=== PATIENT | male | born 1950 | race Caucasian/White ===

== ENCOUNTER 2016-09-05 09:04 | Inpatient (IN) | payer OTHER ==
[~2016-09-05] VITALS: Ht 172.7 cm; Wt 81.8 kg
[~2016-09-05 09:04] MED LIST: ABL/15 PO; ALBU0.08 INH; HYDCR1 EXT; INSUINJ12 SC; IPRA1AER2 INH; LPR25 PO; MELA1TAB22 PO; NVLGI SC; NYSS5 PO; OXYC7.5T65 PO; PRED10TA PO; SERT-234 PO; SIMV20TA2 PO; SPRIN INH; TIZA4CAP PO; ZTHM250 PO
--- NOTE | 2016-09-05 09:36 | DIAGNOSTIC IMAGING REPORT ---
CHEST ONE VIEW PORTABLE CLINICAL HISTORY: weakness COMPARISON STUDY: 03/25/2016 FINDINGS: There is right-sided volume loss. There is stable linear scar/atelectatic change the right lung base. There is no focal pulmonary consolidation. There are no pleural effusions. There is no overt failure.[There is a thoracolumbar scoliosis. IMPRESSION: Mild elevation of the right hemidiaphragm with right-sided volume loss. No evidence of acute parenchymal consolidation. No evidence of overt failure. Electronically signed by: Tonio Colon M.D. 09/05/2016 9:34 AM Dictated Date/Time: 09/05/2016 9:32 AM
[2016-09-05 10:08] LABS: BASO % 0.3 %; BASO ABS # 0.02 K/uL (0-0.2); COMPLETE YES; EOS % 2.8 %; HEMATOCRIT 44.2 % (42-52); IG% 0.3 %; LYMPH % 21.9 %; LYMPH ABS # 1.67 K/uL (1.2-3.4); MEAN CELL VOLUME 104.7 fL (80-100); MEAN CORPUSCULAR HEMOGLOBIN 31.8 pg (25-34); MEAN CORPUSCULAR HGB CONC 30.3 g/dl (32-36); MEAN PLATELET VOLUME 10.8 fL (7.4-10.4); MONO % 7.1 %; NEUT % 67.6 %; PLATELET COUNT 111 K/uL (130-400); RED BLOOD COUNT 4.22 M/uL (4.7-6.1); WHITE BLOOD COUNT 7.62 K/uL (4.8-10.8)
[2016-09-05 10:16] LABS: ALT/SGPT 43 U/L (12-78); BLOOD UREA NITROGEN 19 mg/dl (7-18); CALCIUM 9.1 mg/dl (8.5-10.1); CARBON DIOXIDE 36 mmol/L (21-32); CHLORIDE 100 mmol/L (98-107); CREATININE 0.42 mg/dl (0.60-1.40); GLUCOSE 118 mg/dl (70-99); SODIUM 142 mmol/L (136-145)
[2016-09-05 10:21] LABS: ALB/GLOB RATIO 1.1 (0.9-2); ALKALINE PHOSPHATASE 74 U/L (45-117); AST/SGOT 30 U/L (15-37); CKMB/CK RATIO 1.9 (0-3.0)
--- NOTE | 2016-09-05 10:44 | EMERGENCY ROOM VISIT NOTE ---
History Report prepared by Laura: Marcus Pierce Under the Supervision of: Dr. Kennedy Gates M.D. First contact with patient: 10:08 Chief Complaint: WEAKNESS Stated Complaint: WEAKNESS Nursing Triage Summary: Patint presents to ER via EMS c/o weakness. Patient states "I just don't feel right". EMS states they were called at 0700 and patients family stated patient seemed weaker. Weakness noted starting around 0600. Patient has hx of polio. Bilateral feet contracted with foot drop noted. EMS arrived around 0745. Patient denies SOB, CP, cough, N/V/D. History of Present Illness The patient is a 66 year old male who presents to the Emergency Room with complaints of persistent confusion that worsened early this morning. Per family , the patient is has been more confused than he typically is at baseline for the past few days. Per daughter, the patient has been having episodes of blank staring where he does not respond verbally and seemed unable to talk to family members. She also notes a few episodes of involuntary twitching and more urinary frequency. The patient has a history of polio but has not had symptoms this severely in the past. Per patient's , his home oxygen recently had to be increased one liter because he was having difficulty breathing. The patient is on Percocet, Abilify, and Zoloft medications; the family denies any recent changes in medications. Source of History: patient, family Onset: early this morning Position: other (global) Timing: worsening, other (persistent) Associated Symptoms: + SOB (increased home oxygen because difficulty breathing), + urinary symptoms (urinary frequency) Note: Other associated symptoms: staring off, not responding, unable to talk Denies: recent medication changes Review of Systems All systems have been listed, reviewed, and are negative other than those previously mentioned. Please see Additional Medical History Sheet. Past Medical & Surgical Medical Problems: (1) Depression (2) Diabetes mellitus, type II (3) Dyslipidemia (4) History of poliomyelitis (5) Kidney stones (6) Rheumatoid arthritis (7) Sepsis Surgical Problems: (1) H/O knee surgery (2) H/O shoulder surgery (3) History of hip surgery (4) S/P surgical manipulation of ankle joint Family History FH: HTN (hypertension) FH: cancer FH: diabetes mellitus FH: kidney disease FHx: heart disease Social History Smoking Status: Former Smoker Alcohol Use: occasionally Marital Status: Housing Status: lives with family Occupation Status: disabled Current/Historical Medications Scheduled Aripiprazole (Abilify), 15 MG PO DAILY Aspirin (Aspirin EC Low Dose), 81 MG PO DAILY Insulin Detmir (Levemir), 24 UNIT SC QAM Insulin Detmir (Levemir), 20 UNIT SC HS Oxygen (Oxygen), 2.5-3 LITERS NA CONTINOUS Sertraline (Zoloft), 200 MG PO DAILY Simvastatin (Zocor), 20 MG PO QPM Scheduled PRN Albuterol (Ventolin Hfa), 2 PUFFS INH Q4H PRN for SOB/Wheezing Albuterol Sulf (Proventil 0.083% 2.5MG/3ML), 2.5 MG INH Q4 PRN for SOB/Wheezing Betamethasone Dip (Betamethasone Dipropionat), 1 APPLN EXT BID PRN for rash Ipratropium-Albuterol (Combivent Respimat), 1 PUFFS INH QID PRN for SOB/Wheezing Melatonin-Pyridoxine (Melatonin), 1 TAB PO HS PRN for Sleep Oxycodone/Acetaminophen 10MG/325MG (Percocet 10MG/325MG), 1 TAB PO Q6 PRN for Pain Tizanidine Hcl (Zanaflex), 1 CAP PO TID PRN for Muscle Spasms Miscellaneous Medications Insulin Aspart (Novolog), 0 SC Allergies Coded Allergies: No Known Allergies (Unverified , 03/25/16) Physical Exam Vital Signs Date Time Temp Pulse Resp B/P Pulse Ox O2 Delivery O2 Flow Rate FiO2 09/05/16 15:01 36.8 62 16 96/68 93 Nasal Cannula 2.5 09/05/16 14:30 100 16 96/68 93 Nasal Cannula 2.5 09/05/16 13:42 96 09/05/16 12:30 82 17 106/73 93 Room Air 09/05/16 10:41 87 17 108/78 95 Nasal Cannula 2.5 09/05/16 09:22 97 Nasal Cannula 2.5 09/05/16 09:13 90 09/05/16 09:08 36.8 100 16 149/84 97 Nasal Cannula 2.5 Physical Exam GENERAL: Patient awake, alert, oriented to person and place. Patient follows commands. Patient does not appear toxic. SKIN: No erythema, pallor, cyanosis or rash HEENT: Normal head, atraumatic, Pupils one mm bilaterally, left eye more reactive than right. Ears normal. Oral cavity and posterior pharynx appear normal. Neck: Without adenopathy, no neck vein distention. LUNGS: Clear to auscultation. No wheezes, no rales, no rhonchi. HEART: No murmurs. No gallops. No rubs ABDOMEN: No masses, no rebound, no hepatomegaly or splenomegaly. No CVA tenderness EXTREMITIES: No signs of trauma. No pedal or pretibial edema. No calf or thigh tenderness. NEUROLOGIC: Cranial nerves II-XII within normal limits. Motor and reflex exams limited due to polio history Medical Decision & Procedures ER Provider Diagnostic Interpretation: X-ray results as stated below per my interpretation and radiologist interpretation. Other radiology results as stated below per my review and radiologist interpretation: CHEST ONE VIEW PORTABLE CLINICAL HISTORY: weakness COMPARISON STUDY: 03/25/2016 FINDINGS: There is right-sided volume loss. There is stable linear scar/atelectatic change the right lung base. There is no focal pulmonary consolidation. There are no pleural effusions. There is no overt failure.[There is a thoracolumbar scoliosis. IMPRESSION: Mild elevation of the right hemidiaphragm with right-sided volume loss. No evidence of acute parenchymal consolidation. No evidence of overt failure. Electronically signed by: Tonio Colon M.D. 09/05/2016 9:34 AM Dictated Date/Time: 09/05/2016 9:[address] HEAD WITHOUT CONTRAST (CT) CLINICAL HISTORY: Change in mental status. Confusion/delirium. COMPARISON STUDY: 11/20/2015 TECHNIQUE: Axial CT of the brain is performed from the vertex to the skull base. IV contrast was not administered for this examination. CT DOSE: 638.56 mGycm FINDINGS: No intra or extra-axial mass lesions are visualized. There is no CT evidence of acute cortical infarction. There is no evidence of midline shift. There is no acute hemorrhage. No calvarial fractures are visualized. There are minimal white matter hypodensities likely on a small vessel basis. There is no evidence of pathologic ventricular dilatation. There is partial opacification of the right frontal sinus. IMPRESSION: 1. Partial opacification the right frontal sinus 2. No acute intracranial findings Electronically signed by: Tonio Colon M.D. 09/05/2016 11:04 AM Dictated Date/Time: 09/05/2016 11:02 AM Laboratory Results 09/05/16 09:10 Red Blood Count 4.22, Mean Corpuscular Volume 104.7, Mean Corpuscular Hemoglobin 31.8, Mean Corpuscular Hemoglobin Concent 30.3, Mean Platelet Volume 10.8, Neutrophils (%) (Auto) 67.6, Lymphocytes (%) (Auto) 21.9, Monocytes (%) ( Auto) 7.1, Eosinophils (%) (Auto) 2.8, Basophils (%) (Auto) 0.3, Neutrophils # ( Auto) 5.16, Lymphocytes # (Auto) 1.67, Monocytes # (Auto) 0.54, Eosinophils # ( Auto) 0.21, Basophils # (Auto) 0.02 09/05/16 09:10 Test 09/05/16 09:10 09/05/16 11:30 White Blood Count 7.62 K/uL (4.8-10.8) Red Blood Count 4.22 M/uL (4.7-6.1) Hemoglobin 13.4 g/dL (14.0-18.0) Hematocrit 44.2 % (42-52) Mean Corpuscular Volume 104.7 fL (80-100) Mean Corpuscular Hemoglobin 31.8 pg (25-34) Mean Corpuscular Hemoglobin Concent 30.3 g/dl (32-36) Platelet Count 111 K/uL (130-400) Mean Platelet Volume 10.8 fL (7.4-10.4) Neutrophils (%) (Auto) 67.6 % Lymphocytes (%) (Auto) 21.9 % Monocytes (%) (Auto) 7.1 % Eosinophils (%) (Auto) 2.8 % Basophils (%) (Auto) 0.3 % Neutrophils # (Auto) 5.16 K/uL (1.4-6.5) Lymphocytes # (Auto) 1.67 K/uL (1.2-3.4) Monocytes # (Auto) 0.54 K/uL (0.11-0.59) Eosinophils # (Auto) 0.21 K/uL (0-0.5) Basophils # (Auto) 0.02 K/uL (0-0.2) RDW Standard Deviation 52.7 fL (36.4-46.3) RDW Coefficient of Variation 13.7 % (11.5-14.5) Immature Granulocyte % (Auto) 0.3 % Immature Granulocyte # (Auto) 0.02 K/uL (0.00-0.02) Anion Gap 6.0 mmol/L (3-11) Est Creatinine Clear Calc Drug Dose 171.9 ml/min Estimated GFR () 142.6 Estimated GFR (Non- 123.0 BUN/Creatinine Ratio 44.0 (10-20) Calcium Level 9.1 mg/dl (8.5-10.1) Total Bilirubin 0.2 mg/dl (0.2-1) Aspartate Amino Transf (AST/SGOT) 30 U/L (15-37) Alanine Aminotransferase (ALT/SGPT) 43 U/L (12-78) Alkaline Phosphatase 74 U/L (45-117) Total Creatine Kinase 31 U/L (39-308) Creatine Kinase MB 0.6 ng/ml (0.5-3.6) Creatine Kinase MB Ratio 1.9 (0-3.0) Troponin I < 0.015 ng/ml (0-0.045) Total Protein 7.0 gm/dl (6.4-8.2) Albumin 3.6 gm/dl (3.4-5.0) Globulin 3.4 gm/dl (2.5-4.0) Albumin/Globulin Ratio 1.1 (0.9-2) Urine Color DK YELLOW Urine Appearance CLEAR (CLEAR) Urine pH 5.0 (4.5-7.5) Urine Specific [place] 1.025 (1.000-1.030) Urine Protein NEG (NEG) Urine Glucose (UA) NEG (NEG) Urine Ketones NEG (NEG) Urine Occult Blood TRACE (NEG) Urine Nitrite NEG (NEG) Urine Bilirubin NEG (NEG) Urine Urobilinogen NEG (NEG) Urine Leukocyte Esterase TRACE (NEG) Urine WBC (Auto) 1-5 /hpf (0-5) Urine RBC (Auto) 0-4 /hpf (0-4) Urine Hyaline Casts (Auto) 5-10 /lpf (0-5) Urine Epithelial Cells (Auto) 10-20 /lpf (0-5) Urine Bacteria (Auto) NEG (NEG) Laboratory results as stated above per my review. ECG Indication: other Rate (beats per minute): 90 Rhythm: normal sinus Findings: no acute ischemic change, no ectopy ED Course 1020: Past medical records reviewed. The patient was evaluated in room B5. A complete history and physical examination was performed. 1300: At this time, I reevaluated the patient and talked with the patient's family. Further history was obtained and it was noted that the patient did obtain an extra pain pill, Percocet, earlier this morning. However, the family does not believe this is the problem. 1345: At this time, I discussed the findings with the family. They were concerned about the patient's altered status and expressed that they felt very apprehensive about taking the patient home today. 1406: I discussed the patient's case with Hue Smith PA-C - Lai Hamilton and she agreed to accept the patient for further evaluation. Medical Decision Differential diagnoses include delirium, dementia, TIA, stroke, intracranial bleed, UTI, pneumonia, medication reaction, or sepsis. The patient is here with altered mental status. Family believes he was hallucinating this morning. This is unusual for the patient. There was some question whether he got an extra dose of Percocet but the family does not believe that is the cause. Multiple labs, EKG and imaging were obtained. Please see above. The patient has no evidence of an acute stroke on CT. Labs are close to normal levels. The patient was reevaluated multiple times. Family believes that he remains altered from his normal state. In light of that I will have the patient stay in the hospital. I discussed care with the patient, multiple family members and with the hospitalist. Consults Time Called: 1400 Consulting Physician: Hue Smith PA-C - Lai Hamilton Returned Call: 140 At this time, I discussed the patient's case with Hue Smith PA-C and she agreed to accept the patient for further evaluation. Impression Primary Impression: Altered mental status Scribe Attestation The scribe's documentation has been prepared under my direction and personally reviewed by me in its entirety. I confirm that the note above accurately reflects all work, treatment, procedures, and medical decision making performed by me. Departure Information Dispostion Being Evaluated By Hospitalist Asad Randhawa M.D. (PCP)
[2016-09-05] MEDS ORDERED: SERT-234 PO (10:50)
[2016-09-05] MEDS ORDERED: OXYC-106 PO (10:50)
[2016-09-05] MEDS ORDERED: OXGN (10:50)
--- NOTE | 2016-09-05 11:05 | DIAGNOSTIC IMAGING REPORT ---
CT HEAD WITHOUT CONTRAST (CT) CLINICAL HISTORY: Change in mental status. Confusion/delirium. COMPARISON STUDY: 11/20/2015 TECHNIQUE: Axial CT of the brain is performed from the vertex to the skull base. IV contrast was not administered for this examination. CT DOSE: 638.56 mGycm FINDINGS: No intra or extra-axial mass lesions are visualized. There is no CT evidence of acute cortical infarction. There is no evidence of midline shift. There is no acute hemorrhage. No calvarial fractures are visualized. There are minimal white matter hypodensities likely on a small vessel basis. There is no evidence of pathologic ventricular dilatation. There is partial opacification of the right frontal sinus. IMPRESSION: 1. Partial opacification the right frontal sinus 2. No acute intracranial findings Electronically signed by: Tonio Colon M.D. 09/05/2016 11:04 AM Dictated Date/Time: 09/05/2016 11:02 AM
[2016-09-05 11:53] LABS: URINE APPEARANCE CLEAR (CLEAR); URINE COLOR DK YELLOW; URINE NITRITE NEG (NEG); URINE SPECIFIC GRAVITY 1.025 (1.000-1.030); UROBILINOGEN NEG (NEG); ZZUR CULT IF INDIC CLEAN CATCH NO
[2016-09-05 12:00] LABS: MANUAL MICROSCOPIC REQUIRED? NO; REVIEW REQ? NO
[2016-09-05 12:02] LABS: URINE BILIRUBIN NEG (NEG)
[2016-09-05 15:01] VITALS: BP 96/68; PULSE 62; TEMP 36.8; O2SAT 93; Ht 172.7 cm; Wt 81.8 kg
[2016-09-05] MEDS ORDERED: TIZA4CAP PO (15:05)
[2016-09-05] MEDS ORDERED: ALBINS/ INH (15:05)
[2016-09-05] MEDS ORDERED: IPRA1AER2 INH (15:05)
[2016-09-05] MEDS ORDERED: DPRSO15 EXT (15:05)
[2016-09-05] MEDS ORDERED: PRVHFAIN INH (15:05)
[2016-09-05] MEDS ORDERED: MELA1TAB3 PO (15:11)
[2016-09-05] MEDS ORDERED: ASPEC81 PO (15:11)
[2016-09-05] MEDS ORDERED: GLUCAGON FOR INJ 1 MG VIAL SQ PRN (15:15)
[2016-09-05] MEDS ORDERED: GLUCOSE 10 TABS/TUBE PO PRN (15:15)
[2016-09-05] MEDS ORDERED: DEXTROSE 50% 50 ML SYR IV PRN (15:15)
[2016-09-05] MEDS ORDERED: IPRATROPIUM BROMIDE/ALBUTEROL respimat INH INH PRN (15:15)
[2016-09-05] MEDS ORDERED: ALBUTEROL HFA 8 GM INHALER INH PRN (15:15)
[2016-09-05] MEDS ORDERED: GLUCOSE 40% GEL 15 GM TUBE PO PRN (15:15)
[2016-09-05] MEDS ORDERED: ALBUTEROL 0.083% NEBU SOLN 3 ML VIAL INH PRN (15:15)
[2016-09-05] MEDS ORDERED: ONDANSETRON INJ 2 MG/ML 2 ML VIAL IV PRN (15:30)
[2016-09-05] MEDS ORDERED: ACETAMINOPHEN 325 MG TAB PO PRN (15:30)
--- NOTE | 2016-09-05 15:51 | History and Physical ---
History & Physical Date & Time of Service: Sep 05, 2016 at 15:14 Chief Complaint: Weakness Primary Care Physician: Asad Painter M.D. History of Present Illness Source: patient, family ( and daughter at bedside), clinic records This is a 66 year old male with PMH of COPD, chronic respiratory failure on supplemental O2, DM type 2, dyslipidemia, depression, Polio, chronically bedbound, who presents to the ED by ambulance for altered mental status. Patient reports "I was talking goofy". Per the family, around 6 am, he started having intermittent episodes of staring with eyes open, was unresponsive, and was twitching diffusely. Daughter sates these episodes were intermittent over 1 hour, lasting a few minutes at a time. In between episodes he was confused and would say things that did not make sense. There was no tongue biting or incontinence. Daughter states he was disoriented to the year earlier today, which is unusual for him. On my questioning he states it is September 2015- which is improved from earlier today. He is oriented to person and place. He is chronically weak in arms and R > L leg and bedbound due to polio but there is no acute change in weakness. Denies ROJAS, vision change, slurred speech, facial droop, swallowing difficulty, numbness. His blood sugar was in 100s at home this morning and in ER. Mood has been stable. No recent change in medications. He did have 1 dose of Percocet this morning. Pt had a dry cough 2-3 weeks ago which has been improving. Pt has arthritis but recently was c/o diffuse body pain worse than usual. No fever, chills, rhinorrhea, sore throat, CP, worsening of chronic SOB, N/V/D, abdominal pain, change in urination. No history of seizure or CVA. No sick contacts. Past Medical/Surgical History Medical Problems: (1) Depression Status: Chronic (2) Diabetes mellitus, type II Status: Chronic (3) Dyslipidemia Status: Chronic (4) History of poliomyelitis Status: Resolved (5) Kidney stones Status: Resolved (6) Rheumatoid arthritis Status: Chronic Surgical Problems: (1) H/O knee surgery Status: Chronic (2) H/O shoulder surgery Status: Chronic (3) History of hip surgery Status: Chronic (4) S/P surgical manipulation of ankle joint Status: Chronic Family History FH: HTN (hypertension) FH: cancer FH: diabetes mellitus MOTHER BROTHER SISTER FH: kidney disease FHx: heart disease Social History Smoking Status: Former Smoker (quit in February 2016) Alcohol Use: none Drug Use: none Marital Status: Housing status: lives with family Occupational Status: disabled Immunizations History of Influenza Vaccine: Yes Influenza Vaccine Date: May 09, 2015 History of Tetanus Vaccine?: Yes Tetanus Immunization Date: Sep 25, 2011 History of Pneumococcal: Yes Pneumococcal Date: Oct 05, 2011 Allergies Coded Allergies: No Known Allergies (Unverified , 03/25/16) Home Medications Scheduled Aripiprazole (Abilify), 15 MG PO DAILY Aspirin (Aspirin EC Low Dose), 81 MG PO DAILY Insulin Detmir (Levemir), 24 UNIT SC QAM Insulin Detmir (Levemir), 20 UNIT SC HS Oxygen (Oxygen), 2.5-3 LITERS NA CONTINOUS Sertraline (Zoloft), 200 MG PO DAILY Simvastatin (Zocor), 20 MG PO QPM Scheduled PRN Albuterol (Ventolin Hfa), 2 PUFFS INH Q4H PRN for SOB/Wheezing Albuterol Sulf (Proventil 0.083% 2.5MG/3ML), 2.5 MG INH Q4 PRN for SOB/Wheezing Betamethasone Dip (Betamethasone Dipropionat), 1 APPLN EXT BID PRN for rash Ipratropium-Albuterol (Combivent Respimat), 1 PUFFS INH QID PRN for SOB/Wheezing Melatonin-Pyridoxine (Melatonin), 1 TAB PO HS PRN for Sleep Oxycodone/Acetaminophen 10MG/325MG (Percocet 10MG/325MG), 1 TAB PO Q6 PRN for Pain Tizanidine Hcl (Zanaflex), 1 CAP PO TID PRN for Muscle Spasms Miscellaneous Medications Insulin Aspart (Novolog), 0 SC Review of Systems Constitutional: No chills, No fever Eyes: No worsening of vision ENT: No nasal symptoms, No sore throat, No trouble swallowing Respiratory: + cough, + shortness of breath (no change from baseline), No sputum Cardiovascular: No chest pain Abdomen: No diarrhea, No nausea, No pain, No vomiting Musculoskeletal: + joint pain Genitourinary - Male: No dysuria, No urinary frequency (no increase from baseline) Neurologic: + weakness (no change from baseline), No numbness/tingling Psychiatric: No anxiety, No depression symptoms Hematologic / Lymphatic: + abnormal bleeding/bruising (bruises easily. no abnormal bleeding) Integumentary: + rash (psoriasis plaques on trunk) Physical Exam Vital Signs Date Time Temp Pulse Resp B/P Pulse Ox O2 Delivery O2 Flow Rate FiO2 09/05/16 14:30 100 16 96/68 93 Nasal Cannula 2.5 09/05/16 13:42 96 09/05/16 12:30 82 17 106/73 93 Room Air 09/05/16 10:41 87 17 108/78 95 Nasal Cannula 2.5 09/05/16 09:22 97 Nasal Cannula 2.5 09/05/16 09:13 90 09/05/16 09:08 36.8 100 16 149/84 97 Nasal Cannula 2.5 General Appearance: WD/WN, no apparent distress, + pertinent finding (alert 66 year old male, no distress, family at bedside) Head: normocephalic, atraumatic Eyes: normal inspection, PERRL, EOMI ENT: hearing grossly normal, pharynx normal Neck: supple Respiratory/Chest: lungs clear, normal breath sounds, no respiratory distress Cardiovascular: regular rate, rhythm, no murmur Abdomen/GI: normal bowel sounds, non tender, soft Extremities/Musculoskelatal: no calf tenderness, no pedal edema, + pertinent finding (has deformities of right hand and bilateral ankles/ feet. 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 mildly disoriented to date- states September 2015. staffing rn strength equal 4/5. unable to lift bilateral arms off the bed- baseline per family. able to lift L leg strength 3/5. unable to lift R leg strength 1/5- baseline. sensation to light touch intact all extremities. ) Skin: normal color, warm/dry, + pertinent finding (psoriatic plaques on abdomen ) Diagnostics Laboratory Results Results Past 24 Hours Test 09/05/16 09:10 09/05/16 11:30 Range/Units White Blood Count 7.62 4.8-10.8 K/uL Red Blood Count 4.22 4.7-6.1 M/uL Hemoglobin 13.4 14.0-18.0 g/dL Hematocrit 44.2 42-52 % Mean Corpuscular Volume 104.7 80-100 fL Mean Corpuscular Hemoglobin 31.8 25-34 pg Mean Corpuscular Hemoglobin Concent 30.3 32-36 g/dl Platelet Count 111 130-400 K/uL Mean Platelet Volume 10.8 7.4-10.4 fL Neutrophils (%) (Auto) 67.6 % Lymphocytes (%) (Auto) 21.9 % Monocytes (%) (Auto) 7.1 % Eosinophils (%) (Auto) 2.8 % Basophils (%) (Auto) 0.3 % Neutrophils # (Auto) 5.16 1.4-6.5 K/uL Lymphocytes # (Auto) 1.67 1.2-3.4 K/uL Monocytes # (Auto) 0.54 0.11-0.59 K/uL Eosinophils # (Auto) 0.21 0-0.5 K/uL Basophils # (Auto) 0.02 0-0.2 K/uL RDW Standard Deviation 52.7 36.4-46.3 fL RDW Coefficient of Variation 13.7 11.5-14.5 % Immature Granulocyte % (Auto) 0.3 % Immature Granulocyte # (Auto) 0.02 0.00-0.02 K/uL Sodium Level 142 136-145 mmol/L Potassium Level 5.0 3.5-5.1 mmol/L Chloride Level 100 98-107 mmol/L Carbon Dioxide Level 36 21-32 mmol/L Anion Gap 6.0 3-11 mmol/L Blood Urea Nitrogen 19 7-18 mg/dl Creatinine 0.42 0.60-1.40 mg/dl Est Creatinine Clear Calc Drug Dose 171.9 ml/min Estimated GFR () 142.6 Estimated GFR (Non- 123.0 BUN/Creatinine Ratio 44.0 10-20 Random Glucose 118 70-99 mg/dl Calcium Level 9.1 8.5-10.1 mg/dl Total Bilirubin 0.2 0.2-1 mg/dl Aspartate Amino Transf (AST/SGOT) 30 15-37 U/L Alanine Aminotransferase (ALT/SGPT) 43 12-78 U/L Alkaline Phosphatase 74 45-117 U/L Total Creatine Kinase 31 39-308 U/L Creatine Kinase MB 0.6 0.5-3.6 ng/ml Creatine Kinase MB Ratio 1.9 0-3.0 Troponin I < 0.015 0-0.045 ng/ml Total Protein 7.0 6.4-8.2 gm/dl Albumin 3.6 3.4-5.0 gm/dl Globulin 3.4 2.5-4.0 gm/dl Albumin/Globulin Ratio 1.1 0.9-2 Urine Color DK YELLOW Urine Appearance CLEAR CLEAR Urine pH 5.0 4.5-7.5 Urine Specific [place] 1.025 1.000-1.030 Urine Protein NEG NEG Urine Glucose (UA) NEG NEG Urine Ketones NEG NEG Urine Occult Blood TRACE NEG Urine Nitrite NEG NEG Urine Bilirubin NEG NEG Urine Urobilinogen NEG NEG Urine Leukocyte Esterase TRACE NEG Urine WBC (Auto) 1-5 0-5 /hpf Urine RBC (Auto) 0-4 0-4 /hpf Urine Hyaline Casts (Auto) 5-10 0-5 /lpf Urine Epithelial Cells (Auto) 10-20 0-5 /lpf Urine Bacteria (Auto) NEG NEG Diagnostic Radiology CHEST ONE VIEW PORTABLE CLINICAL HISTORY: weakness COMPARISON STUDY: 03/25/2016 FINDINGS: There is right-sided volume loss. There is stable linear scar/atelectatic change the right lung base. There is no focal pulmonary consolidation. There are no pleural effusions. There is no overt failure.[There is a thoracolumbar scoliosis. IMPRESSION: Mild elevation of the right hemidiaphragm with right-sided volume loss. No evidence of acute parenchymal consolidation. No evidence of overt failure. CT HEAD WITHOUT CONTRAST (CT) CLINICAL HISTORY: Change in mental status. Confusion/delirium. COMPARISON STUDY: 11/20/2015 TECHNIQUE: Axial CT of the brain is performed from the vertex to the skull base. IV contrast was not administered for this examination. CT DOSE: 638.56 mGycm FINDINGS: No intra or extra-axial mass lesions are visualized. There is no CT evidence of acute cortical infarction. There is no evidence of midline shift. There is no acute hemorrhage. No calvarial fractures are visualized. There are minimal white matter hypodensities likely on a small vessel basis. There is no evidence of pathologic ventricular dilatation. There is partial opacification of the right frontal sinus. IMPRESSION: 1. Partial opacification the right frontal sinus 2. No acute intracranial findings EKG NSR, 90 bpm, no ST or T wave abnormalities Impression Assessment and Plan ALTERED MENTAL STATUS- resolving Unclear etiology- no clear evidence for infection- will check influenza swab, no consolidation on CXR, UA does not appear infected No focal deficits; CT head- no acute intracranial abnormality Check urine tox screen Hold Percocet and Zanaflex Question of seizure like activity Consult neurology COPD/ CHRONIC RESPIRATORY FAILURE Not in acute exacerbation Continue home nebs/ inhalers On chronic supplemental O2 2.5-3 liters DEPRESSION Mood is stable Continue Abilify and Zoloft DM TYPE 2 Continue Levemir Insulin sliding scale coverage A1c in AM RHEUMATOID ARTHRITIS Hold Percocet due to AMS HISTORY OF POLIO Bedbound due to chronic weakness DVT PROPHYLAXIS Lovenox SQ DISPOSITION Observation to med/surg Lives at home with Follows with Dr. Painter for primary care. Patient seen in collaboration with Dr. Grubbs. Please see his addendum. ATTENDING NOTE Patient seen & examined at bedside. Reviewed the above History/Physical and confirmed all the findings in person. Patient is awake and tries to answer simple questions which as per the family members is different than his baseline. CT Head is negative for any acute finding other than Frontal sinus opacification. Chest X-Ray is negative for any Pneumonia. Patient is being admitted to medical floor. Neurology consult requested. Hold any sedative medication. DVT Prophylaxis with Sq Lovenox. Sarkis Grubbs MD Level of Care Med/Surg VTE Prophylaxis Given or contraindicated: Enoxaparin (Lovenox)SQ
[2016-09-05] MEDS: INSULIN ASPART 100 UNITS/ML 3 ML PEN SC SCH ×2 (16:00→20:47)
[2016-09-05 16:04] LABS: PARTIAL THROMBOPLASTIN RATIO 1.1; PROTHROMBIN TIME (PATIENT) 10.8 SECONDS (9.0-12.0)
[2016-09-05] MEDS ORDERED: INFLUENZA VIRUS QUAD VACCINE 0.5 ML SYR IM. ONE (16:30)
[2016-09-05] MEDS ORDERED: IV FLUIDS COMPLETED PRN (16:30)
[2016-09-05] MEDS ORDERED: INFLUENZA ADMINISTRATION CHARGE ONE (16:30)
[2016-09-05 19:00] VITALS: BP 137/78; PULSE 97; TEMP 37.4; O2SAT 95
[2016-09-05] MEDS: SIMVASTATIN 20 MG TAB PO SCH (20:40)
[2016-09-05] MEDS: ENOXAPARIN 40 MG/0.4 ML SYR SQ SCH (20:42)
[2016-09-05] MEDS: INSULIN DETEMIR FLEXPEN/FLEX TOUCH 100 UNITS/ML 3ML SC SCH (20:44)
[2016-09-05 23:18] LABS: BENZODIAZEPINE, URINE NEG (NEG); COCAINE,URINE NEG (NEG); PHENCYCLIDINE, URINE NEG (NEG)
[2016-09-06 00:14] VITALS: BP 124/79; PULSE 91; TEMP 37.1; O2SAT 95
[2016-09-06 00:25] LABS: INFLUENZA A PCR Neg for Influ A (NEG); INFLUENZA B PCR Neg for Influ B (NEG)
[2016-09-06 08:00] VITALS: O2SAT 95
[2016-09-06 08:19] VITALS: BP 125/73; PULSE 79; TEMP 36.6; O2SAT 97
[2016-09-06 08:20] LABS: MEAN CELL VOLUME 103.6 fL (80-100); MEAN CORPUSCULAR HEMOGLOBIN 32.4 pg (25-34); MEAN CORPUSCULAR HGB CONC 31.3 g/dl (32-36); RED BLOOD COUNT 3.86 M/uL (4.7-6.1); WHITE BLOOD COUNT 5.63 K/uL (4.8-10.8)
[2016-09-06 08:42] LABS: MEAN PLATELET VOLUME 10.4 fL (7.4-10.4); PLATELET COUNT 94 K/uL (130-400); PLT ESTIMATE DECREASED
[2016-09-06 08:47] LABS: BLOOD UREA NITROGEN 19 mg/dl (7-18); BUN/CREATININE RATIO 65.5 (10-20); CALCIUM 8.8 mg/dl (8.5-10.1); CARBON DIOXIDE 37 mmol/L (21-32); CHLORIDE 100 mmol/L (98-107); CREATININE 0.29 mg/dl (0.60-1.40); ESTIMATED AVERAGE GLUCOSE 120 mg/dl; GLUCOSE 100 mg/dl (70-99); HA1C FLAG Normal (Normal); POTASSIUM 4.4 mmol/L (3.5-5.1); SODIUM 144 mmol/L (136-145)
[2016-09-06] MEDS: ARIPIprazole TAB 15 MG TAB PO SCH (09:17)
[2016-09-06] MEDS: ASPIRIN 81 MG ECTAB PO SCH (09:17)
[2016-09-06] MEDS: SERTRALINE HCL 100 MG TAB PO SCH (09:17)
[2016-09-06] MEDS: INSULIN DETEMIR FLEXPEN/FLEX TOUCH 100 UNITS/ML 3ML SC SCH ×2 (09:21→20:56)
[2016-09-06] MEDS: INSULIN ASPART 100 UNITS/ML 3 ML PEN SC SCH ×4 (09:21→20:55)
--- NOTE | 2016-09-06 12:02 | Progress Note ---
Medicine Progress Note Date & Time of Visit: Sep 06, 2016 at 10:30. (Hue Smith PA-C) Subjective Patient seen and examined. Per his grandson at the bedside, who stayed with him last night, overnight he was hallucinating that trucks were on the ceiling. Daughter states this also happened in ER yesterday- was hallucinating that animals were present. Grandson/ daughter state he is back to baseline currently. Patient is complaining of his chronic diffuse pain. His home Percocet was held due to AMS. Daughter states he refused Tylenol because he knows it will not work. Denies dizziness, ROJAS, numbness, change in chronic weakness, chest pain, cough, SOB, abdominal pain, N/V/D. (Hue Smith PA-C) Objective Last 8 Hrs Date Time Temp Pulse Resp B/P Pulse Ox O2 Delivery O2 Flow Rate FiO2 09/06/16 08:19 36.6 79 20 125/73 97 Nasal Cannula 3.0 Physical Exam: General-alert 66 year old male, lying in bed, no distress, family at bedside Eyes-anicteric, EOMI, FAWN ENT-hearing grossly intact Neck-trachea midline Lungs-CTA bilaterally, no wheezes, crackles, rhonchi, no resp distress, no accessory muscle use Heart-RRR, no murmur Abdomen-soft, nontender, BS normal Extremities- chronic deformities of right hand and bilateral ankles/ feet, Neuro-alert and oriented to person + place, mildly off on the year (states 2016) , speech is clear, facial movements symmetric, +chronic weakness of bilateral arms and legs Laboratory Results: Last 24 Hours Test 09/05/16 11:30 09/05/16 17:09 09/05/16 20:37 09/05/16 22:30 Urine Color DK YELLOW Urine Appearance CLEAR Urine pH 5.0 Urine Specific [place] 1.025 Urine Protein NEG Urine Glucose (UA) NEG Urine Ketones NEG Urine Occult Blood TRACE Urine Nitrite NEG Urine Bilirubin NEG Urine Urobilinogen NEG Urine Leukocyte Esterase TRACE Urine WBC (Auto) 1-5 /hpf Urine RBC (Auto) 0-4 /hpf Urine Hyaline Casts (Auto) 5-10 /lpf Urine Epithelial Cells (Auto) 10-20 /lpf Urine Bacteria (Auto) NEG Bedside Glucose 127 mg/dl 138 mg/dl Influenza Type A (RT-PCR) Neg for Influ A Influenza Type B (RT-PCR) Neg for Influ B Test 09/05/16 22:34 09/06/16 07:45 09/06/16 07:59 Urine Opiates Screen POS Urine Methadone, Qualitative NEG Urine Barbiturates NEG Urine Phencyclidine (PCP) Level NEG Ur Amphetamine/Methamphetamine NEG MDMA (Ecstasy) Screen NEG Urine Benzodiazepines Screen NEG Urine Cocaine Metabolite NEG Urine Marijuana (THC) NEG White Blood Count 5.63 K/uL Red Blood Count 3.86 M/uL Hemoglobin 12.5 g/dL Hematocrit 40.0 % Mean Corpuscular Volume 103.6 fL Mean Corpuscular Hemoglobin 32.4 pg Mean Corpuscular Hemoglobin Concent 31.3 g/dl RDW Standard Deviation 51.6 fL RDW Coefficient of Variation 13.7 % Platelet Count 94 K/uL Mean Platelet Volume 10.4 fL Platelet Estimate DECREASED Sodium Level 144 mmol/L Potassium Level 4.4 mmol/L Chloride Level 100 mmol/L Carbon Dioxide Level 37 mmol/L Anion Gap 7.0 mmol/L Blood Urea Nitrogen 19 mg/dl Creatinine 0.29 mg/dl Est Creatinine Clear Calc Drug Dose 248.9 ml/min Estimated GFR () > 150.0 Estimated GFR (Non- 143.3 BUN/Creatinine Ratio 65.5 Random Glucose 100 mg/dl Estimated Average Glucose 120 mg/dl Hemoglobin A1c 5.8 % Calcium Level 8.8 mg/dl Magnesium Level 2.0 mg/dl Vitamin B12 Level 606 pg/mL Folate 12.26 ng/mL Bedside Glucose 100 mg/dl (Hue Smith, PA-C) Assessment & Plan ALTERED MENTAL STATUS Unclear etiology- no clear evidence for infection- influenza swab negative, no consolidation on CXR, UA does not appear infected No focal deficits; CT head- no acute intracranial abnormality, + right frontal sinus partial opacification Check urine tox screen: + opiates- confirmatory pending Initially held Percocet and Zanaflex for AMS - now adding [place] 5/235 for control of chronic pain Question of seizure like activity- EEG no epileptic activity Currently back to baseline Neurology consulted; appreciate input- recommend to consider sleep study COPD/ CHRONIC RESPIRATORY FAILURE Not in acute exacerbation Continue home nebs/ inhalers On chronic supplemental O2 2.5-3 liters DEPRESSION Mood is stable Continue Abilify and Zoloft DM TYPE 2 Continue Levemir Insulin sliding scale coverage A1c in AM CHRONIC PAIN Percocet held due to AMS Now adding [place] 5/235 for control of chronic pain HISTORY OF POLIO Bedbound due to chronic weakness PT/ OT evaluations SACRAL ERYTHEMA Wound care nurse consulted DVT PROPHYLAXIS Lovenox SQ DISPOSITION Observation to med/surg Lives at home with Follows with Dr. Painter for primary care Patient seen in collaboration with Dr. España. Please see her addendum. Current Inpatient Medications: Current Inpatient Medications Medications (Trade) Dose Ordered Sig/Erica Route Start Time Stop Time Status Last Admin Dose Admin Insulin Aspart (novoLOG ASPART) SLIDING SCALE If C... ACHS SC 09/05/16 16:00 10/05/16 15:59 09/06/16 09:21 6 UNITS Glucose (Glucose 40% Gel) 15-30 GRAMS 15 GRAMS... UD PRN PO 09/05/16 15:15 10/05/16 15:14 Glucose (Glucose Chew Tab) 4-8 Tablets 4 Tabl... UD PRN PO 09/05/16 15:15 10/05/16 15:14 Dextrose (Dextrose 50% 50ML Syringe) 25-50ML OF 50% DW IV FOR... UD PRN IV 09/05/16 15:15 10/05/16 15:14 Glucagon (Glucagon Inj) 1 mg UD PRN SQ 09/05/16 15:15 10/05/16 15:14 Albuterol (Ventolin Hfa Inhaler) 2 puffs Q4H PRN INH 09/05/16 15:15 10/05/16 15:14 Albuterol Sulfate (Ventolin 0.083% 2.5MG/3ML Neb) 2.5 mg Q4 PRN INH 09/05/16 15:15 10/05/16 15:14 Aripiprazole (Abilify Tab) 15 mg DAILY PO 09/06/16 08:00 10/06/16 08:59 09/06/16 09:17 15 MG Aspirin (Ecotrin Tab) 81 mg DAILY PO 09/06/16 08:00 10/06/16 08:59 09/06/16 09:17 81 MG Albuterol/ Ipratropium (Combivent Respimat Inh) 1 puffs QID PRN INH 09/05/16 15:15 10/05/16 15:14 Sertraline HCl (Zoloft Tab) 200 mg DAILY PO 09/06/16 08:00 10/06/16 08:59 09/06/16 09:17 200 MG Simvastatin (Zocor Tab) 20 mg QPM PO 09/05/16 21:00 10/05/16 20:59 09/05/16 20:40 20 MG Miscellaneous Information (Order Awaiting Action) 1 ea QS N/A 09/05/16 16:00 10/05/16 15:59 Insulin Detemir (Levemir Flexpen/ FlexTouch) 20 unit HS SC 09/05/16 21:00 10/05/16 20:59 09/05/16 20:44 20 UNIT Insulin Detemir (Levemir Flexpen/ FlexTouch) 24 unit QAM SC 09/06/16 08:00 10/06/16 08:59 09/06/16 09:21 24 UNIT Enoxaparin Sodium (Lovenox Inj) 40 mg QPM SQ 09/05/16 21:00 10/05/16 20:59 09/05/16 20:42 40 MG Acetaminophen (Tylenol Tab) 650 mg Q4H PRN PO 09/05/16 15:30 10/05/16 15:29 Ondansetron HCl (Zofran Inj) 4 mg Q6H PRN IV 09/05/16 15:30 10/05/16 15:29 Miscellaneous (Iv Fluids Completed) 1 ea PRN PRN N/A 09/05/16 16:30 09/05/17 16:29 (uHe Smith, PAClaytonC) Agree with the above progress note; patient appears to be alert and oriented and back to baseline, however family at the bedside report the patient still seems to be having some hallucinations and is not acting himself. The patient denies any complaints other than having pain in his back and extremities that he normally takes opioid medications for. Cardiac: RR, S1 and S2 auscultated Resp: CTA B/L AMS: -patient is no longer lethargic and is A&Ox3 -Neuro consulted, EEG done, awaiting report -opioid medications held, will resume at lower dose -patients family reports patient has been on his Psych meds for many years without difficulty and do not wish to hold them at this time -workup for possible infection (Juliana España, D.O.)
--- NOTE | 2016-09-06 12:32 | ELECTROENCEPHALOGRAPH REPORT ---
CLINICAL DIAGNOSIS: Change in mental status. EEG DIAGNOSIS: Mildly diffusely abnormal EEG during wakefulness. DESCRIPTION OF TRACING: This EEG was done as a bedside recording on a patient who is described by the medication technician as somewhat dull but otherwise cooperative. The tracing is performed during wakefulness. Drowsiness is not clearly recorded. Photic stimulation is performed. A video analysis of patient movement and behavior is also obtained. Under these conditions, there is evidence for a background rhythm in the upper theta range of up to 7-8 Hz of maximum frequency and of up to 30 microvolts of maximum amplitude which is maximum posterior head regions bilaterally symmetrical. Polymorphic mid to slightly lower frequency theta activity intermixed with occasional waveforms in the delta range is seen over all head regions without clear focal or regional predominance other than a slight central mid temporal accentuation in terms of amplitude. Anterior head region maximum bilaterally symmetrical low voltage fast activity in the beta range is present. Photic stimulation provoked some modest driving response without a photomyogenic or photoparoxysmal component. At no time during the waking tracing is there evidence for potentially epileptogenic activity in the form of polyspike or spike wave bursts, focal sharp waves or focal spikes. INTERPRETATION: This EEG is mildly diffusely abnormal during wakefulness in a highly nonspecific pattern. There are no lateralizing features and no potentially epileptogenic activity and the pattern certainly would be consistent with a wide range of toxic or metabolic encephalopathies. MTDD
--- NOTE | 2016-09-06 14:45 | Neurology Consultation ---
Neurology Consultation Date of Consultation: Sep 06, 2016. Attending Physician: Juliana España D.O. Primary Care Physician: Asad Painter M.D. Reason for Consultation: MS change ?seizure like activity History of Present Illness Source: patient, family, spouse Gold is a 66 year old left handed male with PMH of COPD, chronic respiratory failure on supplemental O2, DM type 2, dyslipidemia, depression, Polio, chronically bedbound, who presents to the ED by ambulance for altered mental status. He states he has been bed bound since March 2016 which he relates to pain and chronic arthritic changes.He had polio at a very young age and had numerous surgeries. He graduated from high school and worked at [employer]. and son are in the room and the states he was having intermittent episodes of staring with eyes open and twitching. They lasted over and hour. She states he did not have facial droop, slurred speech. Afterward the states he was not confused but according to the admitting note there was confusion. There was no tongue biting or incontinence. He is oriented to person and place and year. He is weak at baseline but states that didn't change after the episode. He has a hospital bed at home and does not really get out of bed he uses a urinal to void. He is on O2 at home and has sleep apnea but no longer wears the bi pap at night and the machine was returned due to lack of use. He had PT / OT at home after his admission in March but they felt they really couldn't do much to help his mobility due to the pain. His states his hands are becoming more and more atrophied and contracted. She does all his home care and states he has no bed sores or breakdown. denies headaches , currently no confusion, CP, SOB, abdominal pain, N, V, weight loss,no history of seizures or strokes. +pain in legs. He is a former ppd smoker quit last year , no EtOH use or other drugs not prescribed to him, no change in medication recently and he does take narcotics for pain but no more than normal which is 2 percocet per day, minimal caffeine use. Past Medical/Surgical History Medical Problems: (1) Altered mental status Status: Acute (2) Altered mental status Status: Acute (3) Bronchitis Status: Acute (4) COPD (chronic obstructive pulmonary disease) Status: Acute (5) COPD (chronic obstructive pulmonary disease) Status: Acute (6) Hypoxia Status: Acute (7) Hypoxia Status: Acute (8) Shortness of breath Status: Acute (9) SIRS (systemic inflammatory response syndrome) Status: Acute Social History Smoking Status: Former smoker Alcohol Use: none Drug Use: none Marital Status: Housing Status: lives with family Occupation Status: disabled Allergies Coded Allergies: No Known Allergies (Unverified , 03/25/16) Current Inpatient Medications Current Inpatient Medications Medications (Trade) Dose Ordered Sig/Erica Route Start Time Stop Time Status Last Admin Dose Admin Insulin Aspart (novoLOG ASPART) SLIDING SCALE If C... ACHS SC 09/05/16 16:00 10/05/16 15:59 09/06/16 13:30 10 UNITS Glucose (Glucose 40% Gel) 15-30 GRAMS 15 GRAMS... UD PRN PO 09/05/16 15:15 10/05/16 15:14 Glucose (Glucose Chew Tab) 4-8 Tablets 4 Tabl... UD PRN PO 09/05/16 15:15 10/05/16 15:14 Dextrose (Dextrose 50% 50ML Syringe) 25-50ML OF 50% DW IV FOR... UD PRN IV 09/05/16 15:15 10/05/16 15:14 Glucagon (Glucagon Inj) 1 mg UD PRN SQ 09/05/16 15:15 10/05/16 15:14 Albuterol (Ventolin Hfa Inhaler) 2 puffs Q4H PRN INH 09/05/16 15:15 10/05/16 15:14 Albuterol Sulfate (Ventolin 0.083% 2.5MG/3ML Neb) 2.5 mg Q4 PRN INH 09/05/16 15:15 10/05/16 15:14 Aripiprazole (Abilify Tab) 15 mg DAILY PO 09/06/16 08:00 10/06/16 08:59 09/06/16 09:17 15 MG Aspirin (Ecotrin Tab) 81 mg DAILY PO 09/06/16 08:00 10/06/16 08:59 09/06/16 09:17 81 MG Albuterol/ Ipratropium (Combivent Respimat Inh) 1 puffs QID PRN INH 09/05/16 15:15 10/05/16 15:14 Sertraline HCl (Zoloft Tab) 200 mg DAILY PO 09/06/16 08:00 10/06/16 08:59 09/06/16 09:17 200 MG Simvastatin (Zocor Tab) 20 mg QPM PO 09/05/16 21:00 10/05/16 20:59 09/05/16 20:40 20 MG Miscellaneous Information (Order Awaiting Action) 1 ea QS N/A 09/05/16 16:00 10/05/16 15:59 Insulin Detemir (Levemir Flexpen/ FlexTouch) 20 unit HS SC 09/05/16 21:00 10/05/16 20:59 09/05/16 20:44 20 UNIT Insulin Detemir (Levemir Flexpen/ FlexTouch) 24 unit QAM SC 09/06/16 08:00 10/06/16 08:59 09/06/16 09:21 24 UNIT Enoxaparin Sodium (Lovenox Inj) 40 mg QPM SQ 09/05/16 21:00 10/05/16 20:59 09/05/16 20:42 40 MG Acetaminophen (Tylenol Tab) 650 mg Q4H PRN PO 09/05/16 15:30 10/05/16 15:29 Ondansetron HCl (Zofran Inj) 4 mg Q6H PRN IV 09/05/16 15:30 10/05/16 15:29 Miscellaneous (Iv Fluids Completed) 1 ea PRN PRN N/A 09/05/16 16:30 09/05/17 16:29 Acetaminophen/ Hydrocodone Bitart ([place] 5/325 Tab) 1 tab Q6 PRN PO 09/06/16 11:00 09/20/16 10:59 Physical Exam Vital Signs (Past 24 Hrs): Date Time Temp Pulse Resp B/P Pulse Ox O2 Delivery O2 Flow Rate FiO2 09/06/16 08:19 36.6 79 20 125/73 97 Nasal Cannula 3.0 09/06/16 08:00 95 Nasal Cannula 2.5 09/06/16 00:30 Nasal Cannula 2.5 09/06/16 00:14 37.1 91 20 124/79 95 Nasal Cannula 3.0 09/05/16 20:25 Nasal Cannula 2.5 09/05/16 19:00 37.4 97 18 137/78 95 Nasal Cannula 2.5 09/05/16 15:01 36.8 62 16 96/68 93 Nasal Cannula 2.5 09/05/16 14:30 100 16 96/68 93 Nasal Cannula 2.5 Physical Exam: Constitutional: appearance nourished, obese Ears, Nose, Mouth and Throat: mucous membranes moist, no injection and skin normal, eyes normal Cardiovascular: normal S-1 and S-2 and regular rate and rhythm Respiratory: no rales or wheezing decreased BS bilateral LL Musculoskeletal: no peripheral edema and good distal pulses, bilateral muscle atrophy both UE/LE with contractures Skin: defuse papular lesions on middle aspect of arm and legs, left ear pinna breakdown Eyes: extraocular muscles intact (EOMI) and pupils equal, round and reactive to light (PERRL) NEUROLOGIC EXAMINATION: Mental status: Alert and interactive Oriented to full date and location Oriented to person Speech fluent with no evidence of aphasia Cranial Nerves smile and eye brow raise symmetric, tongue midline Reflexes: no tested due to pain in legs Sensory: vibration and cool touch intact bilaterally UE/LE Coordination: finger to finger with no bipass or tremor Gait/Stance: lying in bed Motor: unable to assess Strength: 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 severe atrophy thenar muscle and intrinsics, left hand tool grinder set up operator gear 5/5 some thenar atrophy, bilaterally LE active movement severe atrophy and contracture, knee deformity and club feet Laboratory Results Past 24 Hours: 09/06/16 07:45 09/06/16 07:45 Test 09/05/16 22:30 09/05/16 22:34 09/06/16 07:45 09/06/16 11:33 Influenza Type A (RT-PCR) Neg for Influ A (NEG) Influenza Type B (RT-PCR) Neg for Influ B (NEG) Urine Opiates Screen POS (NEG) Urine Methadone, Qualitative NEG (NEG) Urine Barbiturates NEG (NEG) Urine Phencyclidine (PCP) Level NEG (NEG) Ur Amphetamine/Methamphetamine NEG (NEG) MDMA (Ecstasy) Screen NEG (NEG) Urine Benzodiazepines Screen NEG (NEG) Urine Cocaine Metabolite NEG (NEG) Urine Marijuana (THC) NEG (NEG) Red Blood Count 3.86 M/uL (4.7-6.1) Mean Corpuscular Volume 103.6 fL (80-100) Mean Corpuscular Hemoglobin 32.4 pg (25-34) Mean Corpuscular Hemoglobin Concent 31.3 g/dl (32-36) RDW Standard Deviation 51.6 fL (36.4-46.3) RDW Coefficient of Variation 13.7 % (11.5-14.5) Mean Platelet Volume 10.4 fL (7.4-10.4) Platelet Estimate DECREASED Anion Gap 7.0 mmol/L (3-11) Est Creatinine Clear Calc Drug Dose 248.9 ml/min Estimated GFR () > 150.0 Estimated GFR (Non- 143.3 BUN/Creatinine Ratio 65.5 (10-20) Estimated Average Glucose 120 mg/dl Hemoglobin A1c 5.8 % (4.5-5.6) Calcium Level 8.8 mg/dl (8.5-10.1) Magnesium Level 2.0 mg/dl (1.8-2.4) Vitamin B12 Level 606 pg/mL (211-911) Folate 12.26 ng/mL (>5.38) Bedside Glucose 202 mg/dl (70-99) Imaging CT head- . Partial opacification the right frontal sinus No acute intracranial findings CXR- Mild elevation of the right hemidiaphragm with right-sided volume loss. No evidence of acute parenchymal consolidation. No evidence of overt failure. EEG-This EEG is mildly diffusely abnormal during wakefulness in a highly nonspecific pattern. There are no lateralizing features and no potentially epileptogenic activity and the pattern certainly would be consistent with a nonspecific encephalopathy, perhaps on a toxic or metabolic basis. Impression 66 year old male s/p starring event possible seizure, or hypoxic event Plan 1. may need reevaluation for night time hypoxia and use of bi pap currently O2 level on 2.5 is approx 95% 2. no seizure activity on EEG - no tongue biting, or incontinence during episode and no confusion after according to -if would persist would recommend an ambulatory EEG as out patient-no previous history of events would not start AED at this time. 3. PT/OT -evaluate for aids for contractures severe atrophy of non use 4. electrolytes in normal range however creatinine clearance impaired kidney function 5. clearly set up for PE or DVT due to being bed bound since March 6. nursing notes sacral erythema may be start of bedsore 7. further recommendations to follow I have seen and discussed above patient with Dr Dennis Aviles, neurology I have interviewed and examined this man and have reviewed the history from family members who witnessed the episodes of waxing waning mental status yesterday and have reviewed the history and imaging studies and the eeg. 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 With the ct being unremarkable and the eeg normal and the history odd it is difficult to call these events seizures and we will lnto recommend any aed rx at this time If events recur he may need an ambulatory eeg but the logistics of getting this done will be difficult and hopefully not necessary Neurology will sign off at this time but would be happy to reassess him in the future Agree that a sleep apnea reevaluation may be in order and in home sleep studies are readily available now Dennis Aviles MD
[2016-09-06 15:38] VITALS: BP 114/71; PULSE 96; TEMP 37.1; O2SAT 96
[2016-09-06] MEDS: SIMVASTATIN 20 MG TAB PO SCH (20:51)
[2016-09-06] MEDS: ENOXAPARIN 40 MG/0.4 ML SYR SQ SCH (20:52)
[2016-09-06] MEDS: DOXYCYCLINE HYCLATE 100 MG CAP PO SCH (20:52)
[2016-09-07 00:18] VITALS: BP 128/78; PULSE 96; TEMP 37.6; O2SAT 95
[2016-09-07 07:24] LABS: HEMATOCRIT 40.7 % (42-52); MEAN CELL VOLUME 100.7 fL (80-100); MEAN CORPUSCULAR HEMOGLOBIN 31.2 pg (25-34); MEAN PLATELET VOLUME 9.9 fL (7.4-10.4); PLATELET COUNT 105 K/uL (130-400); RED BLOOD COUNT 4.04 M/uL (4.7-6.1); WHITE BLOOD COUNT 5.34 K/uL (4.8-10.8)
[2016-09-07 07:38] VITALS: BP 144/78; PULSE 85; TEMP 37.1; O2SAT 94
[2016-09-07 07:52] LABS: BLOOD UREA NITROGEN 14 mg/dl (7-18); BUN/CREATININE RATIO 50.7 (10-20); CALCIUM 8.9 mg/dl (8.5-10.1); CARBON DIOXIDE 37 mmol/L (21-32); CHLORIDE 103 mmol/L (98-107); CREATININE 0.28 mg/dl (0.60-1.40); GLUCOSE 102 mg/dl (70-99); POTASSIUM 4.2 mmol/L (3.5-5.1); SODIUM 144 mmol/L (136-145)
[2016-09-07] MEDS: ASPIRIN 81 MG ECTAB PO SCH (08:29)
[2016-09-07] MEDS: SERTRALINE HCL 100 MG TAB PO SCH (08:29)
[2016-09-07] MEDS: ARIPIprazole TAB 15 MG TAB PO SCH (08:29)
[2016-09-07] MEDS: DOXYCYCLINE HYCLATE 100 MG CAP PO SCH ×2 (08:29→22:00)
[2016-09-07] MEDS: HYDROCODONE/ACETAMOPHEN 5/325MG TAB PO PRN ×2 (08:35→18:32)
--- NOTE | 2016-09-07 08:50 | Progress Note ---
Medicine Progress Note Date & Time of Visit: Sep 07, 2016 at 08:33. (Hue Smith PA-C) Subjective Patient seen and examined with child grandson sleeping at bedside. and daughter not present. Patient states his chronic pain is about the same. He is now oriented to person, place, and the year and month. He has a wound behind his left upper ear where his oxygen tubing usually lays. He had a mild temp of 37.6 last night but afebrile this morning. No change in chronic weakness. Denies chest pain, SOB, abdominal pain, N/V/D/C. No issues reported overnight as per his nurse. (Hue Smith PA-C) Objective Last 8 Hrs Date Time Temp Pulse Resp B/P Pulse Ox O2 Delivery O2 Flow Rate FiO2 09/07/16 07:38 37.1 85 18 144/78 94 Nasal Cannula 2.0 Physical Exam: General-alert 66 year old male, lying in bed, no distress, grandson at bedside Eyes-anicteric, EOMI, AFWN ENT-hearing grossly intact Neck-trachea midline Lungs-CTA bilaterally, no wheezes, crackles, rhonchi, no respiratory distress, no accessory muscle use Heart-RRR, no murmur Abdomen-soft, nontender, BS normal Extremities- chronic deformity and muscle atrophy of his extremities Neuro-alert and oriented x 3, no dysarthria, no facial droop, +chronic weakness of bilateral arms and legs Skin- warm and dry, normal color, +small ulceration behind his left upper ear which is tender to palpation, no erythema or drainage, +psoriatic plaques on his trunk Laboratory Results: Last 24 Hours Test 09/06/16 11:33 09/06/16 16:49 09/06/16 20:05 09/07/16 06:40 Bedside Glucose 202 mg/dl 84 mg/dl 141 mg/dl White Blood Count 5.34 K/uL Red Blood Count 4.04 M/uL Hemoglobin 12.6 g/dL Hematocrit 40.7 % Mean Corpuscular Volume 100.7 fL Mean Corpuscular Hemoglobin 31.2 pg Mean Corpuscular Hemoglobin Concent 31.0 g/dl RDW Standard Deviation 49.8 fL RDW Coefficient of Variation 13.4 % Platelet Count 105 K/uL Mean Platelet Volume 9.9 fL Sodium Level 144 mmol/L Potassium Level 4.2 mmol/L Chloride Level 103 mmol/L Carbon Dioxide Level 37 mmol/L Anion Gap 4.0 mmol/L Blood Urea Nitrogen 14 mg/dl Creatinine 0.28 mg/dl Est Creatinine Clear Calc Drug Dose 257.8 ml/min Estimated GFR () > 150.0 Estimated GFR (Non- 145.3 BUN/Creatinine Ratio 50.7 Random Glucose 102 mg/dl Calcium Level 8.9 mg/dl Test 09/07/16 07:48 Bedside Glucose 84 mg/dl Date/Time Source Procedure Growth Status 09/06/16 16:50 Ear Left Outer Gram Stain - Final Resulted 09/06/16 16:50 Ear Left Outer Wound Culture Pending Resulted (Hue Smith, VELVET) Assessment & Plan ALTERED MENTAL STATUS- resolved Unclear etiology- influenza swab negative, no consolidation on CXR, UA does not appear infected; no significant laboratory abnormalities No focal deficits; CT head- no acute intracranial abnormality, + right frontal sinus partial opacification Check urine tox screen: + opiates- confirmatory pending Initially held Percocet and Zanaflex for AMS - now adding [place] 5/235 for control of chronic pain Question of seizure like activity- EEG no epileptic activity Neurology consulted; appreciate input- recommend to consider sleep study, could consider ambulatory EEG if recurrent event Not able to do sleep study in the hospital; nocturnal pulse oximetry would not be useful as already on continuous home O2 Currently back to baseline LEFT EAR WOUND Started on doxycycline Wound gram stain shows rare gram positive cocci, culture pending COPD/ CHRONIC RESPIRATORY FAILURE Not in acute exacerbation Continue home nebs/ inhalers On chronic supplemental O2 2.5-3 liters DEPRESSION Mood is stable No recent medication changes per family Continue Abilify and Zoloft DM TYPE 2 Continue Levemir Insulin sliding scale coverage A1c in AM CHRONIC PAIN Percocet held due to AMS Now adding [place] 5/235 for control of chronic pain HISTORY OF POLIO Bedbound due to chronic weakness PT/ OT evaluations SACRAL ERYTHEMA Wound care nurse consulted DVT PROPHYLAXIS Lovenox SQ DISPOSITION Admission to med/surg Lives at home with ; daughter lives next door Follows with Dr. Painter for primary care PT, OT, and oncology social work consulted as patient may benefit from home services Patient seen in collaboration with Dr. España. Please see her addendum. Current Inpatient Medications: Current Inpatient Medications Medications (Trade) Dose Ordered Sig/Erica Route Start Time Stop Time Status Last Admin Dose Admin Insulin Aspart (novoLOG ASPART) SLIDING SCALE If C... ACHS SC 09/05/16 16:00 10/05/16 15:59 09/06/16 20:55 1 UNITS Glucose (Glucose 40% Gel) 15-30 GRAMS 15 GRAMS... UD PRN PO 09/05/16 15:15 10/05/16 15:14 Glucose (Glucose Chew Tab) 4-8 Tablets 4 Tabl... UD PRN PO 09/05/16 15:15 10/05/16 15:14 Dextrose (Dextrose 50% 50ML Syringe) 25-50ML OF 50% DW IV FOR... UD PRN IV 09/05/16 15:15 10/05/16 15:14 Glucagon (Glucagon Inj) 1 mg UD PRN SQ 09/05/16 15:15 10/05/16 15:14 Albuterol (Ventolin Hfa Inhaler) 2 puffs Q4H PRN INH 09/05/16 15:15 10/05/16 15:14 Albuterol Sulfate (Ventolin 0.083% 2.5MG/3ML Neb) 2.5 mg Q4 PRN INH 09/05/16 15:15 10/05/16 15:14 Aripiprazole (Abilify Tab) 15 mg DAILY PO 09/06/16 08:00 10/06/16 08:59 09/06/16 09:17 15 MG Aspirin (Ecotrin Tab) 81 mg DAILY PO 09/06/16 08:00 10/06/16 08:59 09/06/16 09:17 81 MG Albuterol/ Ipratropium (Combivent Respimat Inh) 1 puffs QID PRN INH 09/05/16 15:15 10/05/16 15:14 Sertraline HCl (Zoloft Tab) 200 mg DAILY PO 09/06/16 08:00 10/06/16 08:59 09/06/16 09:17 200 MG Simvastatin (Zocor Tab) 20 mg QPM PO 09/05/16 21:00 10/05/16 20:59 09/06/16 20:51 20 MG Miscellaneous Information (Order Awaiting Action) 1 ea QS N/A 09/05/16 16:00 10/05/16 15:59 Insulin Detemir (Levemir Flexpen/ FlexTouch) 20 unit HS SC 09/05/16 21:00 10/05/16 20:59 09/06/16 20:56 20 UNIT Insulin Detemir (Levemir Flexpen/ FlexTouch) 24 unit QAM SC 09/06/16 08:00 10/06/16 08:59 09/06/16 09:21 24 UNIT Enoxaparin Sodium (Lovenox Inj) 40 mg QPM SQ 09/05/16 21:00 10/05/16 20:59 09/06/16 20:52 40 MG Acetaminophen (Tylenol Tab) 650 mg Q4H PRN PO 09/05/16 15:30 10/05/16 15:29 Ondansetron HCl (Zofran Inj) 4 mg Q6H PRN IV 09/05/16 15:30 10/05/16 15:29 Miscellaneous (Iv Fluids Completed) 1 ea PRN PRN N/A 09/05/16 16:30 09/05/17 16:29 Acetaminophen/ Hydrocodone Bitart ([place] 5/325 Tab) 1 tab Q6 PRN PO 09/06/16 11:00 09/20/16 10:59 Doxycycline Hyclate (Vibramycin Cap) 100 mg BID PO 09/06/16 20:00 09/16/16 19:59 09/06/16 20:52 100 MG (Hue Smith, VELVET) Agree with the above progress note in its entirety. Patient was seen with his and additional family present. They feel the patient is better overall, but still not at his baseline. The patient reports having epidose of confusion last night which he related to a dream he woke up from but has not had any hallucinations or other mental status changes. Cardiac: RR, S1 and S2 auscultated Resp: CTA B/L AMS: -patient is no longer lethargic and is A&Ox3 -Neuro consulted, EEG negative, no additional work up recommended at this time -opioid medications held, did resume at lower dose without any changes to mentation -patients family reports patient has been on his Psych meds for many years without difficulty and do not wish to hold them at this time -workup for possible infection, UA negative, left ear wound culture growing staph, started on doxycycline for this (Juliana España, D.O.)
[2016-09-07] MEDS: INSULIN ASPART 100 UNITS/ML 3 ML PEN SC SCH ×4 (08:57→21:59)
[2016-09-07] MEDS: INSULIN DETEMIR FLEXPEN/FLEX TOUCH 100 UNITS/ML 3ML SC SCH ×2 (08:58→22:00)
[2016-09-07 16:51] VITALS: BP 127/81; PULSE 82; TEMP 37.1; O2SAT 96
[2016-09-07] MEDS: SIMVASTATIN 20 MG TAB PO SCH (22:00)
[2016-09-07] MEDS: ENOXAPARIN 40 MG/0.4 ML SYR SQ SCH (22:01)
[2016-09-07 23:59] VITALS: BP 127/75; PULSE 87; TEMP 37; O2SAT 98
[2016-09-08] VITALS: O2SAT 98
[2016-09-08] MEDS: HYDROCODONE/ACETAMOPHEN 5/325MG TAB PO PRN ×3 (03:30→21:06)
[2016-09-08 07:31] VITALS: BP 146/83; PULSE 91; TEMP 36.6; O2SAT 97
[2016-09-08] MEDS: DOXYCYCLINE HYCLATE 100 MG CAP PO SCH ×2 (08:33→21:06)
[2016-09-08] MEDS: ASPIRIN 81 MG ECTAB PO SCH (08:33)
[2016-09-08] MEDS: ARIPIprazole TAB 15 MG TAB PO SCH (08:33)
[2016-09-08] MEDS: SERTRALINE HCL 100 MG TAB PO SCH (08:34)
[2016-09-08] MEDS: INSULIN ASPART 100 UNITS/ML 3 ML PEN SC SCH ×4 (08:43→21:08)
[2016-09-08] MEDS: INSULIN DETEMIR FLEXPEN/FLEX TOUCH 100 UNITS/ML 3ML SC SCH ×2 (08:44→21:09)
[2016-09-08 09:02] LABS: MEAN CELL VOLUME 101.2 fL (80-100); MEAN CORPUSCULAR HEMOGLOBIN 31.3 pg (25-34); MEAN PLATELET VOLUME 10.2 fL (7.4-10.4); PLATELET COUNT 104 K/uL (130-400); RED BLOOD COUNT 4.15 M/uL (4.7-6.1); WHITE BLOOD COUNT 5.27 K/uL (4.8-10.8)
[2016-09-08 09:27] LABS: CREATININE 0.33 mg/dl (0.60-1.40)
[2016-09-08 15:43] VITALS: BP 120/70; PULSE 84; TEMP 36.6; O2SAT 95
[2016-09-08 19:20] LABS: URINE APPEARANCE CLEAR (CLEAR); URINE BILIRUBIN NEG (NEG); URINE COLOR YELLOW; URINE NITRITE NEG (NEG); URINE SPECIFIC GRAVITY 1.024 (1.000-1.030); UROBILINOGEN NEG (NEG)
--- NOTE | 2016-09-08 19:22 | Progress Note ---
Medicine Progress Note Date & Time of Visit: Sep 08, 2016 at 19:22. Subjective Patient has not had any additional hallucinations or confusion episodes. No other complaints noted other than back pain that he chronically suffers with. Family at the bedside and requested a repeat urine culture to be sure there is no infection. Objective Last 8 Hrs Date Time Temp Pulse Resp B/P Pulse Ox O2 Delivery O2 Flow Rate FiO2 09/08/16 15:45 Nasal Cannula 2.5 09/08/16 15:43 36.6 84 16 120/70 95 Nasal Cannula 3.0 Physical Exam: GENERAL: Patient is in no acute distress. HEENT: No acute trauma, normocephalic, mucous membranes moist, no nasal congestion, no scleral icterus. NECK: No stridor, trachea is midline. LUNGS: Diminished bases bilaterally, no wheeze, no rhonchi, breath sounds equal. HEART: Without murmurs gallops or rubs, regular rate and rhythm. ABDOMEN: Soft, nontender, bowel sounds positive EXTREMITIES: No cyanosis or edema NEUROLOGIC: Oriented x 3, no acute motor or sensory deficits, no focal weakness. SKIN: No jaundice, no diaphoresis. Numerous psoriatic lesions present over trunk and extremities. Left ear pinna with slight erythema, ulceration appears healed Laboratory Results: Last 24 Hours Test 09/07/16 20:31 09/08/16 00:00 09/08/16 07:46 09/08/16 07:51 Bedside Glucose 142 mg/dl 110 mg/dl White Blood Count 5.27 K/uL Red Blood Count 4.15 M/uL Hemoglobin 13.0 g/dL Hematocrit 42.0 % Mean Corpuscular Volume 101.2 fL Mean Corpuscular Hemoglobin 31.3 pg Mean Corpuscular Hemoglobin Concent 31.0 g/dl RDW Standard Deviation 51.0 fL RDW Coefficient of Variation 13.8 % Platelet Count 104 K/uL Mean Platelet Volume 10.2 fL Creatinine 0.33 mg/dl Est Creatinine Clear Calc Drug Dose 218.7 ml/min Estimated GFR () > 150.0 Estimated GFR (Non- 135.9 Test 09/08/16 11:41 09/08/16 16:50 Bedside Glucose 120 mg/dl 136 mg/dl Date/Time Source Procedure Growth Status 09/08/16 00:00 Urine , Clean Catch Urine Culture Pending Received Assessment & Plan DELIRIUM/ALTERED MENTAL STATUS/HALLUCINATIONS: resolved -unclear etiology: influenza swab negative, no consolidation on CXR, UA does not appear infected; no significant laboratory abnormalities -no focal deficits -CT head: no acute intracranial abnormality, + right frontal sinus partial opacification -check urine tox screen: + opiates- confirmatory pending -initially held Percocet and Zanaflex for AMS - now adding [place] 5/235 for control of chronic pain -question of seizure like activity; workup included EEG which showed no epileptic activity -Neurology consulted; appreciate input- recommend to consider sleep study, could consider ambulatory EEG if recurrent event -Not able to do sleep study in the hospital; nocturnal pulse oximetry would not be useful as already on continuous home O2 -now back to baseline LEFT EAR WOUND: -started on doxycycline which should also cover the possible sinusitis -Wound culture shows rare gram positive cocci, culture pending, staph aureus growing but sensitivities pending -likely occurred from oxygen tubing friction against ear COPD/CHRONIC RESPIRATORY FAILURE: -not in acute exacerbation -continue home nebs/inhalers -on chronic supplemental O2 at 2.5-3 liters DEPRESSION: -mood is stable -no recent medication changes per family -continued on Abilify and Zoloft DM TYPE II: -continue Levemir -Insulin sliding scale coverage -HbA1c: 5.8% CHRONIC PAIN: -Percocet held due to AMS -now on [place] 5/235 for control of chronic pain HISTORY OF POLIO: -bedbound due to chronic weakness -PT/ OT evaluations SACRAL ERYTHEMA: -wound care nurse consulted -air mattress and frequent repositioning as patient now bedbound Current Inpatient Medications: Current Inpatient Medications Medications (Trade) Dose Ordered Sig/Erica Route Start Time Stop Time Status Last Admin Dose Admin Insulin Aspart (novoLOG ASPART) SLIDING SCALE If C... ACHS SC 09/05/16 16:00 10/05/16 15:59 09/08/16 18:05 6 UNITS Glucose (Glucose 40% Gel) 15-30 GRAMS 15 GRAMS... UD PRN PO 09/05/16 15:15 10/05/16 15:14 Glucose (Glucose Chew Tab) 4-8 Tablets 4 Tabl... UD PRN PO 09/05/16 15:15 10/05/16 15:14 Dextrose (Dextrose 50% 50ML Syringe) 25-50ML OF 50% DW IV FOR... UD PRN IV 09/05/16 15:15 10/05/16 15:14 Glucagon (Glucagon Inj) 1 mg UD PRN SQ 09/05/16 15:15 10/05/16 15:14 Albuterol (Ventolin Hfa Inhaler) 2 puffs Q4H PRN INH 09/05/16 15:15 10/05/16 15:14 Albuterol Sulfate (Ventolin 0.083% 2.5MG/3ML Neb) 2.5 mg Q4 PRN INH 09/05/16 15:15 10/05/16 15:14 Aripiprazole (Abilify Tab) 15 mg DAILY PO 09/06/16 08:00 10/06/16 08:59 09/08/16 08:33 15 MG Aspirin (Ecotrin Tab) 81 mg DAILY PO 09/06/16 08:00 10/06/16 08:59 09/08/16 08:33 81 MG Albuterol/ Ipratropium (Combivent Respimat Inh) 1 puffs QID PRN INH 09/05/16 15:15 10/05/16 15:14 Sertraline HCl (Zoloft Tab) 200 mg DAILY PO 09/06/16 08:00 10/06/16 08:59 09/08/16 08:34 200 MG Simvastatin (Zocor Tab) 20 mg QPM PO 09/05/16 21:00 10/05/16 20:59 09/07/16 22:00 20 MG Miscellaneous Information (Order Awaiting Action) 1 ea QS N/A 09/05/16 16:00 10/05/16 15:59 Insulin Detemir (Levemir Flexpen/ FlexTouch) 20 unit HS SC 09/05/16 21:00 10/05/16 20:59 09/07/16 22:00 20 UNIT Insulin Detemir (Levemir Flexpen/ FlexTouch) 24 unit QAM SC 09/06/16 08:00 10/06/16 08:59 09/08/16 08:44 24 UNIT Enoxaparin Sodium (Lovenox Inj) 40 mg QPM SQ 09/05/16 21:00 10/05/16 20:59 09/07/16 22:01 40 MG Acetaminophen (Tylenol Tab) 650 mg Q4H PRN PO 09/05/16 15:30 10/05/16 15:29 Ondansetron HCl (Zofran Inj) 4 mg Q6H PRN IV 09/05/16 15:30 10/05/16 15:29 Miscellaneous (Iv Fluids Completed) 1 ea PRN PRN N/A 09/05/16 16:30 09/05/17 16:29 Acetaminophen/ Hydrocodone Bitart ([place] 5/325 Tab) 1 tab Q6 PRN PO 09/06/16 11:00 09/20/16 10:59 09/08/16 12:58 1 TAB Doxycycline Hyclate (Vibramycin Cap) 100 mg BID PO 09/06/16 20:00 09/16/16 19:59 09/08/16 08:33 100 MG
[2016-09-08 19:41] LABS: MANUAL MICROSCOPIC REQUIRED? NO; REVIEW REQ? NO
[2016-09-08] MEDS: SIMVASTATIN 20 MG TAB PO SCH (21:06)
[2016-09-08] MEDS: ENOXAPARIN 40 MG/0.4 ML SYR SQ SCH (21:07)
[2016-09-08 23:39] VITALS: BP 114/71; PULSE 74; TEMP 36.8; O2SAT 98
[2016-09-09 00:08] LABS: COD UR NEGATIVE NG/ML (CUTOFF=50); HYDROCOD UR NEGATIVE NG/ML (CUTOFF=50); HYDROMOR UR NEGATIVE NG/ML (CUTOFF=50); MORPHINE UR NEGATIVE NG/ML (CUTOFF=50); NORHYDROCODONE CONF UR NEGATIVE NG/ML (CUTOFF=50); OXYMORPH UR 610 NG/ML (CUTOFF=50)
[2016-09-09] MEDS: HYDROCODONE/ACETAMOPHEN 5/325MG TAB PO PRN ×2 (04:06→11:41)
[2016-09-09 07:50] VITALS: BP 117/74; PULSE 83; TEMP 36.7; O2SAT 97
[2016-09-09] MEDS: ASPIRIN 81 MG ECTAB PO SCH (08:23)
[2016-09-09] MEDS: DOXYCYCLINE HYCLATE 100 MG CAP PO SCH (08:23)
[2016-09-09] MEDS: SERTRALINE HCL 100 MG TAB PO SCH (08:23)
[2016-09-09] MEDS: ARIPIprazole TAB 15 MG TAB PO SCH (08:24)
[2016-09-09] MEDS: INSULIN ASPART 100 UNITS/ML 3 ML PEN SC SCH ×2 (08:52→13:03)
[2016-09-09] MEDS: INSULIN DETEMIR FLEXPEN/FLEX TOUCH 100 UNITS/ML 3ML SC SCH (08:53)
[2016-09-09 10:08] VITALS: BP 117/74; PULSE 83; TEMP 36.7; O2SAT 97
[2016-09-09] MEDS ORDERED: DXY100 PO (12:30)
[2016-09-09] MEDS ORDERED: BACI500O11 TOP (12:30)
--- NOTE | 2016-09-09 12:33 | Discharge Instructions ---
Discharge Instructions Admission Reason for Admission: Altered Mental Status Discharge Discharge Diagnosis / Problem: Left ear wound, AMS, possible sinusitis Discharge Goals Goal(s): Diagnostic testing Activity Recommendations Activity Limitations: as noted below Lifting Limitations: gradually increase as tolerated . Instructions / Follow-Up Instructions / Follow-Up Please follow up with Dr. Painter in 1 week. Please have a formal sleep study arranged through your Primary care physicians office Current Hospital Diet Patient's current hospital diet: Diabetes Type 2 Diet Discharge Diet Recommended Diet: Diabetes Type 2 Diet Pending Studies Studies pending at discharge: no Laboratory Results Hemoglobin A1c Test 09/06/16 07:45 Range/Units Estimated Average Glucose 120 mg/dl Hemoglobin A1c 5.8 H 4.5-5.6 % Medical Emergencies . Who to Call and When: Medical Emergencies: If at any time you feel your situation is an emergency, please call 911 immediately. . Non-Emergent Contact Non-Emergency issues call your: Primary Care Provider . . "Provider Documentation" section prepared by Juliana España. VTE Core Measure Inpt VTE Proph given/why not?: Enoxaparin (Lovenox)SQ
--- NOTE | 2016-09-21 12:00 | Discharge Summary ---
Discharge Summary Admission Date: Sep 06, 2016 at 16:41 Discharge Date: Sep 09, 2016 Discharge Disposition: Home with services Principal Diagnosis: AMS, left ear wound infection Pending Studies/Follow-Up: Outpatient sleep study, possible ambulatory EEG if AMS recurs. Medication Reconciliation New Medications: Doxycycline Hyclate (Doxycycline Hyclate) 100 Mg Cap 100 MG PO BID, #22 CAP Continued Medications: Albuterol (Ventolin Hfa) 60 Puffs/5400 Mcg Aers 2 PUFFS INH Q4H PRN for SOB/Wheezing Albuterol Sulf (Proventil 0.083% 2.5MG/3ML) 2.5 Mg/3 Ml Nebu 2.5 MG INH Q4 PRN for SOB/Wheezing, EA Aripiprazole (Abilify) 15 Mg Tab 15 MG PO DAILY, TAB Aspirin (Aspirin EC Low Dose) 81 Mg Ectab 81 MG PO DAILY Betamethasone Dip (Betamethasone Dipropionat) 45 Appln/15 Gm Oint 1 APPLN EXT BID PRN for rash Insulin Aspart (Novolog) Inj 0 SC, BTL uses per sliding scale Insulin Detmir (Levemir) Inj 24 UNIT SC QAM, VIAL Insulin Detmir (Levemir) Inj 20 UNIT SC HS, VIAL Ipratropium-Albuterol (Combivent Respimat) 1 Aer Aer 1 PUFFS INH QID PRN for SOB/Wheezing, INH Melatonin-Pyridoxine (Melatonin) 1 Tab Tab 1 TAB PO HS PRN for Sleep Oxycodone/Acetaminophen 10MG/325MG (Percocet 10MG/325MG) Tab 1 TAB PO Q6 PRN for Pain, TAB Oxygen (Oxygen) Gas 2.5-3 LITERS NA CONTINOUS Sertraline (Zoloft) 100 Mg Tab 200 MG PO DAILY, TAB Simvastatin (Zocor) 20 Mg Tab 20 MG PO QPM, TAB Tizanidine Hcl (Zanaflex) 4 Mg Cap 1 CAP PO TID PRN for Muscle Spasms for 30 Days, #90 CAP Admission Information HPI (per Admitting provider): This is a 66 year old male with PMH of COPD, chronic respiratory failure on supplemental O2, DM type 2, dyslipidemia, depression, Polio, chronically bedbound, who presents to the ED by ambulance for altered mental status. Patient reports "I was talking goofy". Per the family, around 6 am, he started having intermittent episodes of staring with eyes open, was unresponsive, and was twitching diffusely. Daughter sates these episodes were intermittent over 1 hour, lasting a few minutes at a time. In between episodes he was confused and would say things that did not make sense. There was no tongue biting or incontinence. Daughter states he was disoriented to the year earlier today, which is unusual for him. On my questioning he states it is September 2015- which is improved from earlier today. He is oriented to person and place. He is chronically weak in arms and R > L leg and bedbound due to polio but there is no acute change in weakness. Denies ROJAS, vision change, slurred speech, facial droop, swallowing difficulty, numbness. His blood sugar was in 100s at home this morning and in ER. Mood has been stable. No recent change in medications. He did have 1 dose of Percocet this morning. Pt had a dry cough 2-3 weeks ago which has been improving. Pt has arthritis but recently was c/o diffuse body pain worse than usual. No fever, chills, rhinorrhea, sore throat, CP, worsening of chronic SOB, N/V/D, abdominal pain, change in urination. No history of seizure or CVA. No sick contacts. Physical Exam (per Admitting): General Appearance: WD/WN, no apparent distress, + pertinent finding (alert 66 year old male, no distress, family at bedside) Head: normocephalic, atraumatic Eyes: normal inspection, PERRL, EOMI ENT: hearing grossly normal, pharynx normal Neck: supple Respiratory/Chest: lungs clear, normal breath sounds, no respiratory distress Cardiovascular: regular rate, rhythm, no murmur Abdomen/GI: normal bowel sounds, non tender, soft Extremities/Musculoskelatal: no calf tenderness, no pedal edema, + pertinent finding (has deformities of right hand and bilateral ankles/ feet. 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 mildly disoriented to date- states September 2015. 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 unable to lift bilateral arms off the bed- baseline per family. able to lift L leg strength 3/5. unable to lift R leg strength 1/5- baseline. sensation to light touch intact all extremities. ) Skin: normal color, warm/dry, + pertinent finding (psoriatic plaques on abdomen) Hospital Course DELIRIUM/ALTERED MENTAL STATUS/HALLUCINATIONS: resolved -unclear etiology: influenza swab negative, no consolidation on CXR, UA does not appear infected; no significant laboratory abnormalities -no focal deficits -CT head: no acute intracranial abnormality, + right frontal sinus partial opacification -check urine tox screen: + opiates- confirmatory pending -initially held Percocet and Zanaflex for AMS - now adding [place] 5/235 for control of chronic pain -question of seizure like activity; workup included EEG which showed no epileptic activity -Neurology consulted; appreciate input- recommend to consider sleep study, could consider ambulatory EEG if recurrent event -Not able to do sleep study in the hospital; nocturnal pulse oximetry would not be useful as already on continuous home O2 -now back to baseline LEFT EAR WOUND: -started on doxycycline which should also cover the possible sinusitis -Wound culture shows rare gram positive cocci, culture pending, staph aureus, + MRSA -likely occurred from oxygen tubing friction against ear COPD/CHRONIC RESPIRATORY FAILURE: -not in acute exacerbation -continue home nebs/inhalers -on chronic supplemental O2 at 2.5-3 liters DEPRESSION: -mood is stable -no recent medication changes per family -continued on Abilify and Zoloft DM TYPE II: -continue Levemir -Insulin sliding scale coverage -HbA1c: 5.8% CHRONIC PAIN: -Percocet held due to AMS -now on [place] 5/235 for control of chronic pain HISTORY OF POLIO: -bedbound due to chronic weakness -PT/ OT evaluations SACRAL ERYTHEMA: -wound care nurse consulted -air mattress and frequent repositioning as patient now bedbound Total time spent on discharge = 35 This includes examination of the patient, discharge planning, medication reconciliation, and communication with other providers. Discharge Instructions PHYSICAL EXAM ON DAY OF DISCHARGE: GENERAL: Patient is in no acute distress. HEENT: No acute trauma, normocephalic, mucous membranes moist, no nasal congestion, no scleral icterus. NECK: No stridor, trachea is midline. LUNGS: Clear to auscultation bilaterally, no wheeze, no rhonchi, breath sounds equal. HEART: Without murmurs gallops or rubs, regular rate and rhythm. ABDOMEN: Soft, nontender, bowel sounds positive EXTREMITIES: No cyanosis or edema NEUROLOGIC: Oriented x 3, no acute motor or sensory deficits, no focal weakness. Chronic contractures of extremities noted SKIN: No jaundice, no diaphoresis. +Psoriatic lesions
== END 2016-09-09 14:03 | disposition home health service (06) | DRG 948 ==
LOC: ENRESERVDT → ENRESERVTM → C.EDB 09:04 → EDBD 09:04 → C.MS4W 15:20 → OBSVTOIN 09-06 16:41
PROVIDERS: ADMIT Emergency Medicine; ATTEND Internal Medicine
DX: R41.82 Altered mental status, unspecified (principal); J96.10 Chronic respiratory failure, unspecified whether with hypoxia or hypercapnia; S01.302A Unspecified open wound of left ear, initial encounter; B95.61 Methicillin susceptible Staphylococcus aureus infection as the cause of diseases classified elsewhere; Y82.8 Other medical devices associated with adverse incidents; Y92.230 Patient room in hospital as the place of occurrence of the external cause; R44.3 Hallucinations, unspecified; J32.9 Chronic sinusitis, unspecified; J44.9 Chronic obstructive pulmonary disease, unspecified; G14 Postpolio syndrome; L53.9 Erythematous condition, unspecified; E11.9 Type 2 diabetes mellitus without complications; E78.5 Hyperlipidemia, unspecified; M06.9 Rheumatoid arthritis, unspecified; G89.29 Other chronic pain; M54.9 Dorsalgia, unspecified; M24.541 Contracture, right hand; M24.542 Contracture, left hand; M24.574 Contracture, right foot; M24.575 Contracture, left foot; M21.371 Foot drop, right foot; M21.372 Foot drop, left foot; G47.30 Sleep apnea, unspecified; F32.9 Major depressive disorder, single episode, unspecified; Z23 Encounter for immunization; Z99.81 Dependence on supplemental oxygen; Z74.01 Bed confinement status; Z87.891 Personal history of nicotine dependence; Z79.82 Long term (current) use of aspirin; Z79.4 Long term (current) use of insulin; Z79.891 Long term (current) use of opiate analgesic; Z79.899 Other long term (current) drug therapy